=== PATIENT | male | born 1955 | race Caucasian/White ===

== ENCOUNTER 2017-06-05 14:09 | Inpatient (IN) | payer OTHER ==
[~2017-06-05] VITALS: Ht 175.3 cm; Wt 89.0 kg
[~2017-06-05 14:09] MED LIST: ALBUTEROL0.63 MG/3 NEB; ALDACTONE25 MG PO; ATARAX SYRUP2 MG/ML PO; CALCIUM ACETAT667 M1 PO; CALCIUM ACETAT667 MG PO; CARDIZEM60 MG PO; CARTIA XT120 MG PO; COLACE 100MG C100 MG PO; COMBIVENT0.074 GM/I INH; COREG 3.125M3.125 MG PO; DALIRESP500 MCG PO; DESYREL 50 MG T50 MG PO; FENOFIBRATE200 MG PO; HYDROXYZINE PAM50 MG PO; LASIX80 MG PO; LEVAQUIN500 MG PO; LIPITOR TAB 2020 MG PO; MUCINEX D ER 61 EACH PO; MULTI-VITAMIN1 EACH PO; NASOGEL SALIN28.4 GM; NITROSTAT0.4 MG SL; OMEPRAZOLE40 MG PO; PROMETHAZINE HC25 M1 PO; PROVENTIL HFA6.7 GM INH; RENVELA800 MG PO; SERTRALINE HCL50 MG PO; SPIRIVA18 MCG INH; SYMBICORT 160-1 INHA INH; THEO-24300 MG PO; THEO-DUR 300 M300 MG PO; TYLENOL 500 MG500 MG PO; ZOLOFT25 MG PO
[2017-06-05] MEDS ORDERED: SYMBICORT 160-1 INHA INH (22:04)
[2017-06-05] MEDS ORDERED: HYDROCODON-ACE1 EAC4 PO (22:04)
[2017-06-05] MEDS ORDERED: ZOFRAN 8 MG TAB8 MG PO (22:05)
[2017-06-06 04:58] LABS: HEMOGLOBIN 8.2 gm/dl (14.0-17.5); RED BLOOD COUNT 3.06 M/UL (4.20-5.50); WHITE BLOOD COUNT 4.9 K/UL (4.5-11.0)
[2017-06-07 05:59] LABS: HEMOGLOBIN 7.8 gm/dl (14.0-17.5); RED BLOOD COUNT 2.96 M/UL (4.20-5.50); WHITE BLOOD COUNT 4.7 K/UL (4.5-11.0)
[2017-06-08 05:49] LABS: HEMOGLOBIN 7.9 gm/dl (14.0-17.5); RED BLOOD COUNT 2.88 M/UL (4.20-5.50); WHITE BLOOD COUNT 5.6 K/UL (4.5-11.0)
[2017-06-09 05:34] LABS: WHITE BLOOD COUNT 4.6 K/UL (4.5-11.0)
[2017-06-09 05:44] LABS: HEMOGLOBIN 6.8 gm/dl (14.0-17.5); RED BLOOD COUNT 2.54 M/UL (4.20-5.50)
[2017-06-10 05:36] LABS: HEMOGLOBIN 8.7 gm/dl (14.0-17.5); RED BLOOD COUNT 3.22 M/UL (4.20-5.50); WHITE BLOOD COUNT 6.7 K/UL (4.5-11.0)
[2017-06-11 05:18] LABS: HEMOGLOBIN 8.5 gm/dl (14.0-17.5); RED BLOOD COUNT 3.19 M/UL (4.20-5.50); WHITE BLOOD COUNT 6.4 K/UL (4.5-11.0)
[2017-06-12 05:27] LABS: HEMOGLOBIN 9.3 gm/dl (14.0-17.5); RED BLOOD COUNT 3.46 M/UL (4.20-5.50)
[2017-06-12 05:30] LABS: WHITE BLOOD COUNT 8.1 K/UL (4.5-11.0)
[2017-06-12] MEDS ORDERED: ZOLOFT50 MG PO (22:44)
[2017-06-12] MEDS ORDERED: ZOLOFT100 MG PO (22:45)
[2017-06-14 05:14] LABS: HEMOGLOBIN 8.1 gm/dl (14.0-17.5); RED BLOOD COUNT 2.97 M/UL (4.20-5.50)
[2017-06-14 05:36] LABS: BUN/CREATININE RATIO 17 (0-10)
--- NOTE | 2017-06-15 18:30 | NUR ---
CATECHIST TOLD ME I COULD NOT DISCHARGE PATIENT UNTIL I HEARD FROM HER REGARDING ALF GETTING PRECERT APPROVED FOR NEW DAYS. PATIENT HAS ASKED ME SEVERAL TIMES ABOUT UPDATES AND I HAVE BEEN UNSUCCESSFUL WITH REACHING CATECHIST OR ALF TO GET NEW INFORMATION FOR PATIENT AND FAMILY. I HAVE CALLED SEVERAL TIMES SINCE 5 OCLOCK TO BE ABLE TO GET INFORMATION.
== END 2017-06-16 18:36 | DRG 480 ==
LOC: M/S 20:24
PROVIDERS: Internal Medicine; Legal Medicine; Orthopaedic Surgery; ADMIT Internal Medicine
PROC: 0QS606Z Reposition Right Upper Femur with Intramedullary Internal Fixation Device, Open Approach (ICD-10-PCS; principal; 2017-06-06 19:00)
PROC: 2W6NXZZ Traction of Right Upper Leg (ICD-10-PCS; principal; 2017-06-06 19:00)
PROC: 5A1D60Z (ICD-10-PCS; 2017-06-07)
PROC: 30233N1 Transfusion of Nonautologous Red Blood Cells into Peripheral Vein, Percutaneous Approach (ICD-10-PCS; 2017-06-09)
PROC: 0W9G3ZZ Drainage of Peritoneal Cavity, Percutaneous Approach (ICD-10-PCS; 2017-06-10)
DX: S72.141A Displaced intertrochanteric fracture of right femur, initial encounter for closed fracture (principal); N18.6 End stage renal disease; J18.9 Pneumonia, unspecified organism; I13.2 Hypertensive heart and chronic kidney disease with heart failure and with stage 5 chronic kidney disease, or end stage renal disease; I50.22 Chronic systolic (congestive) heart failure; I47.2 Ventricular tachycardia; J98.11 Atelectasis; R18.8 Other ascites; S22.42XA Multiple fractures of ribs, left side, initial encounter for closed fracture; J44.1 Chronic obstructive pulmonary disease with (acute) exacerbation; J44.0 Chronic obstructive pulmonary disease with (acute) lower respiratory infection; S42.011A Anterior displaced fracture of sternal end of right clavicle, initial encounter for closed fracture; F17.220 Nicotine dependence, chewing tobacco, uncomplicated; W18.39XA Other fall on same level, initial encounter; Z91.81 History of falling; Y93.01 Activity, walking, marching and hiking; D63.1 Anemia in chronic kidney disease; I48.91 Unspecified atrial fibrillation; K59.00 Constipation, unspecified; I95.3 Hypotension of hemodialysis; F41.9 Anxiety disorder, unspecified; Y92.003 Bedroom of unspecified non-institutional (private) residence as the place of occurrence of the external cause; Z99.2 Dependence on renal dialysis; R26.2 Difficulty in walking, not elsewhere classified; M25.50 Pain in unspecified joint; J60 Coalworker's pneumoconiosis; Z87.19 Personal history of other diseases of the digestive system; I25.2 Old myocardial infarction; Z72.3 Lack of physical exercise; Z82.49 Family history of ischemic heart disease and other diseases of the circulatory system; Z88.8 Allergy status to other drugs, medicaments and biological substances; Z79.891 Long term (current) use of opiate analgesic; Z79.51 Long term (current) use of inhaled steroids; Z79.899 Other long term (current) drug therapy; D64.9 Anemia, unspecified
CPT/HCPCS: ECHO; 36415; 36430; 71010; 71101; 71250; 73000; 73030; 73502; 76000; 80048; 80053; 82607; 82746; 83540; 83735; 85025; 85027; 85610; 85730; 86850; 86900; 86901; 86920; 90937; 93005; 93306; 94640; 94660; 94664; 94668; 97110; 97530; C1713; C1769; G0257; J0690; J0713; J0885; J1100; J1644; J1650; J1756; J2270; J2710; J2920; J3430; J7030; J7050; J7120; P9016; P9047; Q0162; Q0177